=== PATIENT | female | born 1955 | race Caucasian/White ===

== ENCOUNTER → 2016-11-27 | Outpatient (REF) | payer OTHER ==
[~2016-11-27] MED LIST: ACET30TAB PO; ASPI1TAB PO; CALC600T57 PO; ENAL20TA PO; FISH1000 PO; GLUC1CAP10 PO; HYDR25TA6 PO; HYDR25TAB PO; IBUP80TA PO; MULT1TAB10 PO; OCUVCAP2 PO; POTA1TAB23 PO; VITA100067 PO
== END ==
LOC: M SFHCWAGY 08:37
PROVIDERS: ATTEND Nurse Practitioner Family
DX: Z01.419 Encounter for gynecological examination (general) (routine) without abnormal findings (principal); Z11.51 Encounter for screening for human papillomavirus (HPV); R87.610 Atypical squamous cells of undetermined significance on cytologic smear of cervix (ASC-US)

== ENCOUNTER → 2016-11-27 | Outpatient (CLI) | payer OTHER ==
--- NOTE | 2016-11-27 14:39 | REPMRS ---
Patient History The patient states she had a clinical breast exam in 12/13 Patient is postmenopausal. No known family history of cancer. Reductions of both breasts, 2002. Benign excisional biopsy of the right breast, 2001. Digital Woman Screen Mammo: November 27, 2016 - Exam #: [id number] Bilateral CC and MLO view(s) were taken. Technologist: Socorro Duenas, Technologist Prior study comparison: November 28, 2015, digital woman screen mammo performed at [facility]. July 27, 2014, digital woman screen mammo performed at [facility]. FINDINGS: The breast tissue is almost entirely fat. There has been no change in the appearance of the mammogram from the prior studies. There is no interval development of dominant mass, areas of architectural distortion, or clustered microcalcification typical of malignancy. Scattered lymph nodes are seen in the axillae. Few scattered fibronodular densities in the breast parenchyma seen, none more suspicious than any other, some definitely smaller but none larger. No significant changes when compared with prior studies. ASSESSMENT: BI-RADS/ACR category 2 mammogram. Benign finding(s). Recommendation Routine screening mammogram in 1 year. A. Negative x-ray reports should not delay biopsy if a dominant or clinically suspicious mass is present. B. Four to eight percent of cancers are not identified by mammography. C. Adenosis and dense breast may obscure an underlying neoplasm.(for women over age 40). This mammogram was interpreted with the aid of an FDA-approved computer-aided dectection system. Electronically Signed By: Farooq Brothers MD 11/27/16 5639
== END ==
LOC: M WHC 08:00
PROVIDERS: ATTEND Nurse Practitioner Family
DX: Z12.31 Encounter for screening mammogram for malignant neoplasm of breast (principal)

== ENCOUNTER → 2016-11-28 | Outpatient (CLI) | payer OTHER ==
--- NOTE | 2016-11-29 06:35 | REP ---
Clinical: Postmenopausal bleeding . Technique: Transabdominal pelvic ultrasound followed by transvaginal examination for better evaluation of the endometrium and adnexa . Findings: Bladder is unremarkable and measures 9.8 x 7.3 x 5.0 cm . Anteverted uterus measures 8.9 x 4.7 x 5.0 cm with 2.2 cm subserosal anterior fibroid. The endometrial complex is heterogeneous and measures 22.4 mm thickness. Bilateral ovaries are normal in appearance. Right ovary measures 2.0 x 1.3 x 2.3 cm. Left ovary measures 1.9 x 1.0 x 2.0 cm. No pelvic fluid or adnexal mass lesion. Impression: 1. Anteverted uterus with 2.2 cm anterior subserosal fibroid and thickened heterogeneous endometrial complex to 22 mm. Signed by Dk Romeo MD 11/29/2016 06:27 A
== END ==
LOC: M WHC 13:16
PROVIDERS: ATTEND Nurse Practitioner Family
DX: N95.0 Postmenopausal bleeding (principal)

== ENCOUNTER 2017-01-09 07:08 | Day surgery (SDC) | payer OTHER ==
[~2017-01-09] VITALS: Ht 149.9 cm; Wt 83.9 kg
[~2017-01-09 07:08] MED LIST changes: -ACET30TAB PO; -IBUP80TA PO
[2017-01-09] MEDS ORDERED: MIDAZOLAM INJ 2 MG/2 ML VIAL (J2250) As Ordered ONE (07:11)
[2017-01-09] MEDS ORDERED: fentaNYL 100 MCG/2 ML INJECTION (J3010) As Ordered ONE ×2 (07:11→08:59)
[2017-01-09] MEDS ORDERED: LR 1,000 ML IV ONE (07:30)
[2017-01-09 07:43] LABS: MEAN CORPUSCULAR HEMOGLOBIN 31.9 pg (27.0-33.0); MEAN CORPUSCULAR HGB CONC 34.4 g/dl (32.0-36.5); MEAN CORPUSCULAR VOLUME 92.9 fl (80.0-96.0); RED CELL DISTRIBUTION WIDTH 12.7 % (11.5-14.5); WHITE BLOOD COUNT 7.2 K/mm3 (4.0-10.0)
[2017-01-09] MEDS ORDERED: ONDANSETRON 4MG/2ML VIAL (J2405) As Ordered ONE ×2 (08:58→09:59)
[2017-01-09] MEDS ORDERED: dexameTHASONE 4 MG/ML 1ML VIAL (J1100) As Ordered ONE (08:58)
[2017-01-09] MEDS ORDERED: PROPOFOL 200 MG/20 ML VIAL As Ordered ONE (08:59)
[2017-01-09] MEDS ORDERED: LIDOCAINE 2% INJ 100 MG/5 ML SDV (FOR ANES.) As Ordered ONE (08:59)
[2017-01-09] MEDS ORDERED: KETOROLAC 60 MG/2 ML VIAL (J1885) As Ordered ONE ×2 (09:00→09:05)
[2017-01-09] MEDS ORDERED: SILVER NITRATE APPLICATOR As Ordered ONE (09:29)
[2017-01-09] MEDS ORDERED: IBUP80TA PO (10:11)
[2017-01-09] MEDS ORDERED: ACET30TAB PO (10:12)
[2017-01-09] MEDS ORDERED: fentaNYL 100 MCG/2 ML INJECTION (J3010) IV PRN (10:30)
[2017-01-09] MEDS ORDERED: LR 1,000 ML IV SCH ×2 (10:30)
[2017-01-09] MEDS ORDERED: HYDROmorphone HCL 1 MG/ML SYRINGE (J1170) IV PRN (10:30)
[2017-01-09] MEDS ORDERED: ONDANSETRON 4MG/2ML VIAL (J2405) IV PRN (10:30)
[2017-01-09] MEDS ORDERED: PERCOCET 5MG/325MG TAB PO PRN (10:30)
--- NOTE | 2017-01-09 11:55 | ECGEPIP ---
Stationary ECG Study [facility] Test Date: 2017-01-09 Pat Name: AMANUEL ZHU GASTON Department: Room: - Gender: F [employer]: RAJESH : 1955 Requested By: CLEM Singh Order Number: [id number] Reading MD: Adrian Bruce Measurements Intervals [place] Rate: 62 P: 43 ID: [id number] QRS: -3 QRSD: 76 T: 13 QT: 375 QTc: 383 Interpretive Statements SINUS RHYTHM WITH FIRST DEGREE AV BLOCK Comparison tracing not on file Electronically Signed On 01-09-2017 11:55:02 EDT by Adrian Bruce
[2017-01-09] MEDS ORDERED: METOCLOPRAMIDE INJ 10MG/2ML VIAL (J2765) IV ONE (12:15)
[2017-01-09 12:45] VITALS: BP 167/89
--- NOTE | 2017-01-09 13:33 | RO ---
DATE OF PROCEDURE: 01/09/2017 PREOPERATIVE DIAGNOSES: 1. Postmenopausal bleeding. 2. Endocervical polyp / cervical mass POSTOPERATIVE DIAGNOSES 1. Postmenopausal bleeding. 2. Endocervical polyp and cervical mass (polyp vs leiomyoma vs large nabothian cyst) 3. Submucosal endometrial mass approximately 3 cm, favor leiomyoma. PROCEDURE PERFORMED: 1. Cervical mass excision. 2. Endocervical polypectomy. 3. MyoSure hysteroscopic myomectomy. 4. Dilatation curettage/hysteroscopy. SURGEON: Shyam Tse DO ONCOLOGY NURSE: None. ANESTHESIA: General via laryngeal mask airway (LMA). SPECIMENS SENT TO PATHOLOGY: 1. Ectocervical mass. The mass was tagged with suture. 2. Endocervical polyp. 3. Morcellated submucosal mass, favor leiomyoma. 4. Endometrial curettings. ESTIMATED BLOOD LOSS: 75 mL. FLUIDS REPLACED: 1 liter Lactated Ringer's. Hysteroscopic fluid deficit was 650 mL of normal saline. DRAINS: In and out catheter, 50 mL of urine output. COMPLICATIONS: None. PREOPERATIVE ANTIBIOTICS/PROPHYLAXIS: Ancef 2 grams IV times one. INTRAOPERATIVE FINDINGS: 1. Ectocervical mass with a broad base, approximately 2 cm, located at 5 o' clock on the ectocervix. 2. Endocervical polyp. 3. Submucosal mass, favor leiomyoma, approximately 3 cm in greatest dimension. 4. Background endometrial tissue was atrophic appearing. After removal of the submucosal mass, a normal intrauterine cavity was visualized. Senior Caregiver images taken and placed in the chart. INDICATION: Patient is a 61-year-old with a history of postmenopausal bleeding. On physical exam in the office, she was noted to have at least one endocervical polyp, possibly two. The ectocervical mass was noted to be quite large with a broad base. The preoperative ultrasonography revealed a thickened endometrium with a possible endometrial mass. PROCEDURE: The patient was counseled and consented on the risks, benefits, indications and alternatives of the procedure, and informed consent was obtained. She was taken to the operating room with an IV running and placed on the operating table in the dorsal supine position. General anesthesia was administered and the airway was secured without any difficulty. She was placed in the high lithotomy position. She was prepared and draped in normal sterile fashion. A time out was performed per protocol. The bladder was drained with a sterile in and out catheter. A sterile speculum was placed into the vagina with good visualization of the cervix. A single-tooth tenaculum was used to grasp the anterior lip of the cervix and downward traction was applied. The ectocervical mass was then excised with the 11 blade. This mass was sent to pathology for permanent section. The subsequent ectocervical defect was bleeding and this defect was repaired with a single figure-of-8 stitch using #0 Vicryl. Excellent hemostasis was noted. An endocervical mass was also noted at the os. Polyp forceps were used to grasp this mass just within the os. This mass was then twisted upon its stalk until it was removed. This mass was sent separately for permanent section. The cervix was sequentially dilated with Keo dilators up to a #13. The uterus was sounded to 8 cm. The hysteroscope was placed transcervically into the intrauterine cavity. A submucosal mass was identified. The MyoSure Lite device was then placed through the hysteroscope and the MyoSure device was abutting the mass and then activated. This mass was methodically morcellated until the mass was completely removed. Minimal bleeding was noted during this time of morcellation. Morcellation proceeded without any difficulty. Once the mass was removed in its entirety, the base of the mass was inspected. The base of the mass was posterior and midbody of the uterus and after excision, the base was noted be hemostatic. The background endometrial lining throughout the cavity was noted to be atrophic. The bilateral fallopian tube ostia were easily visualized. No additional intrauterine or intracervical mass was noted. The hysteroscope was removed. A light curettage was performed throughout the entire intrauterine cavity with minimal tissue return. Minimal bleeding from the cervical os was noted. The single-tooth tenaculums were removed. Tenaculum sites were cauterized with silver nitrate. Minimal bleeding from the os was noted. Sponge, lap, needle and sponge counts were correct. All instruments were removed from the vagina. The patient tolerated the entire procedure well. She was transferred to the postanesthesia care unit (PACU) in good and stable condition. GARY
== END 2017-01-09 12:56 | disposition home or self-care (01) ==
LOC: M SDC 07:08
PROVIDERS: ATTEND Obstetrics & Gynecology
DX: N88.8 Other specified noninflammatory disorders of cervix uteri (principal); N84.0 Polyp of corpus uteri; N84.1 Polyp of cervix uteri; R93.8 Abnormal findings on diagnostic imaging of other specified body structures; I10 Essential (primary) hypertension; R01.1 Cardiac murmur, unspecified; D69.6 Thrombocytopenia, unspecified; I73.00 Raynaud's syndrome without gangrene; M19.041 Primary osteoarthritis, right hand; M19.042 Primary osteoarthritis, left hand; Z79.899 Other long term (current) drug therapy; Z79.82 Long term (current) use of aspirin; Z90.81 Acquired absence of spleen
CPT/HCPCS: 36415; 58558; 85027; 86850; 86900; 86901; 88305; 93005; J0690; J1100; J1885; J2250; J2405; J2765; J3010

== ENCOUNTER → 2017-08-08 | Outpatient (CLI) | payer OTHER | LOC: M RAD 11:39 | DX: N95.0 Postmenopausal bleeding (principal); D25.1 Intramural leiomyoma of uterus | CPT/HCPCS: 76856 ==

== ENCOUNTER → 2017-08-30 | Outpatient (REF) | payer OTHER | LOC: M LAB REF 18:41 | DX: N95.0 Postmenopausal bleeding (principal) ==

== ENCOUNTER → 2017-12-02 | Outpatient (REF) | payer OTHER ==
[2017-12-04 15:25] LABS: HPV HYBRID CAPTURE II Positive (Negative)
== END ==
LOC: M SFHCWAGY 09:55
DX: Z12.4 Encounter for screening for malignant neoplasm of cervix (principal)
CPT/HCPCS: G0123

== ENCOUNTER → 2017-12-02 | Outpatient (CLI) | payer OTHER | LOC: M WHC 09:29 | DX: Z12.31 Encounter for screening mammogram for malignant neoplasm of breast (principal) | CPT/HCPCS: 77067 ==

== ENCOUNTER → 2018-07-25 | Outpatient (REF) | payer OTHER ==
[~2018-07-25] MED LIST changes: +ACET30TAB PO; +IBUP80TA PO
[2018-07-30 14:25] LABS: HPV HYBRID CAPTURE II Positive (Negative)
== END ==
LOC: M LAB REF 12:39
PROVIDERS: ATTEND Obstetrics & Gynecology
DX: Z12.4 Encounter for screening for malignant neoplasm of cervix (principal)
CPT/HCPCS: 87624; G0123

== ENCOUNTER → 2018-12-03 | Outpatient (CLI) | payer OTHER ==
[~2018-12-03] MED LIST changes: +ACET-716 PO; -ACET30TAB PO; -ASPI1TAB PO; +ASPI81TA26 PO
--- NOTE | 2018-12-03 10:16 | REPMRS ---
Patient History The patient states she has not had a clinical breast exam in over a year. Patient is postmenopausal. No known family history of cancer. Reductions of both breasts, 2001. Benign excisional biopsy of the right breast, 2001. No Hormone Replacement Therapy 3D TOMOSYNTHESIS WAS PERFORMED. The [facility] lifetime risk for breast cancer is 9.3 %. Digital Woman Screen Mammo: December 03, 2018 - Exam #: [id number] Bilateral CC and MLO view(s) were taken. Technologist: Lilliam Hernandez, Technologist Prior study comparison: December 02, 2017, bilateral digital woman screen mammo performed at [facility]. November 27, 2016, digital woman screen mammo performed at [facility]. FINDINGS: There are scattered fibroglandular densities. There has been no change in the appearance of the mammogram from the prior studies. There is a mild amount of residual fibroglandular tissue which is fairly symmetric. There is no interval development of dominant mass, architectural distortion, or clustered microcalcification suggestive of malignancy. Assessment: BI-RADS/ACR category 1 mammogram. Negative Mammogram. Recommendation Routine screening mammogram in 1 year (for women over age 40). This mammogram was interpreted with the aid of an FDA-approved computer-aided dectection system. Electronically Signed By: Castro Banda MD 12/03/18 1016
== END ==
LOC: M WHC 08:26
PROVIDERS: ATTEND Obstetrics & Gynecology
DX: Z12.31 Encounter for screening mammogram for malignant neoplasm of breast (principal); Z78.0 Asymptomatic menopausal state

== ENCOUNTER → 2018-12-03 | Outpatient (REF) | payer OTHER | LOC: M LAB REF 13:36 | PROVIDERS: ATTEND Obstetrics & Gynecology | DX: R87.810 Cervical high risk human papillomavirus (HPV) DNA test positive (principal) ==

== ENCOUNTER → 2020-01-14 | Outpatient (REF) | payer OTHER ==
[~2020-01-14] MED LIST changes: -ENAL20TA PO; +ENAL20TA11 PO
== END ==
LOC: M SFHCWAGY 16:53
PROVIDERS: ATTEND Obstetrics & Gynecology
DX: Z12.4 Encounter for screening for malignant neoplasm of cervix (principal); R87.610 Atypical squamous cells of undetermined significance on cytologic smear of cervix (ASC-US)
CPT/HCPCS: 87624; G0123

== ENCOUNTER → 2020-01-18 | Outpatient (CLI) | payer OTHER ==
--- NOTE | 2020-01-18 16:01 | REPMRS ---
Patient History The patient states she had a clinical breast exam in 2019. No known family history of cancer. Reductions of both breasts, 2001. Benign excisional biopsy of the right breast, 2001. No Hormone Replacement Therapy 3D TOMOSYNTHESIS WAS PERFORMED. [facility] lifetime risk for breast cancer is 9.0%. VOLPARA DENSITY A. Digital Woman Screen Mammo: January 18, 2020 - Exam #: [id number] Bilateral CC and MLO view(s) were taken. Technologist: Rere Alvarado, Technologist Prior study comparison: December 03, 2018, bilateral digital woman screen mammo performed at [facility]. December 02, 2017, bilateral digital woman screen mammo performed at [facility]. FINDINGS: There are scattered fibroglandular densities. There has been no change in the appearance of the mammogram from the prior studies. There is a mild amount of residual fibroglandular tissue which is fairly symmetric. There is no interval development of dominant mass, architectural distortion, or clustered microcalcification suggestive of malignancy. Assessment: BI-RADS/ACR category 1 mammogram. Negative Mammogram. Recommendation Routine screening mammogram in 1 year (for women over age 40). This mammogram was interpreted with the aid of an FDA-approved computer-aided dectection system. Electronically Signed By: Castro Banda MD 01/18/20 [id number]
== END ==
LOC: M WHC 15:18
PROVIDERS: ATTEND Obstetrics & Gynecology
DX: Z12.31 Encounter for screening mammogram for malignant neoplasm of breast (principal); Z86.018 Personal history of other benign neoplasm

== ENCOUNTER → 2020-02-24 | Outpatient (REF) | payer OTHER | LOC: M SFHCWAGY 18:37 | PROVIDERS: ATTEND Obstetrics & Gynecology | DX: R87.610 Atypical squamous cells of undetermined significance on cytologic smear of cervix (ASC-US) (principal) ==

== ENCOUNTER → 2021-03-08 | Outpatient (REF) | payer OTHER ==
[~2021-03-08] MED LIST changes: +HYDR-3490 PO; -HYDR25TAB PO
== END ==
LOC: M SFHCWAGY 16:59
PROVIDERS: ATTEND Obstetrics & Gynecology
DX: Z12.4 Encounter for screening for malignant neoplasm of cervix (principal)
CPT/HCPCS: 87624; G0123

== ENCOUNTER → 2021-04-27 | Outpatient (CLI) | payer OTHER ==
--- NOTE | 2021-04-27 09:00 | REP ---
INDICATION: SCREEN MAMMO. COMPARISON: 01/18/2020 as well as multiple other prior exams. TECHNIQUE: MLO and CC views bilateral breasts with tomosynthesis FINDINGS: Mild scattered fibroglandular tissue is present. There are 2 nodules in the medial aspect of the left breast. Anteriorly an oval nodule demonstrates smooth margins, and measures about 5 mm in diameter. More posteriorly a lobulated well-defined oval nodule has a maximum diameter 7 mm. Otherwise no mass or clustered microcalcifications are seen. The Volpara volumetric breast density pattern is A. IMPRESSION: BIRADS/ACR category 0, incomplete. Two nodules visualized in the medial aspect of the left breast. Recommend spot compression views and ultrasound to further evaluate. This patient's Tyrer-Cuzick lifetime breast cancer risk assessment score is 8.6%. This mammogram was interpreted with the aid of an FDA-approved computer-aided detection system. The patient states she had a clinical breast exam in over 1 year ago. The patient letter being requested is M0. RECOMMENDATION: Recommend spot compression views and ultrasound left breast as discussed above. <Electronically signed by Castro Banda > 04/27/21 5529
== END ==
LOC: M WHC 06:57
PROVIDERS: ATTEND Obstetrics & Gynecology
DX: Z12.31 Encounter for screening mammogram for malignant neoplasm of breast (principal)

== ENCOUNTER → 2021-05-16 | Outpatient (CLI) | payer OTHER | LOC: M WHC 14:39 | PROVIDERS: ATTEND Obstetrics & Gynecology | DX: Z12.31 Encounter for screening mammogram for malignant neoplasm of breast (principal) | CPT/HCPCS: 76642; 77065; G0279 ==

== ENCOUNTER → 2022-04-05 | Outpatient (REF) | payer OTHER | LOC: M SFHCWAGY 13:32 | PROVIDERS: ATTEND Obstetrics & Gynecology | DX: Z12.4 Encounter for screening for malignant neoplasm of cervix (principal); R87.610 Atypical squamous cells of undetermined significance on cytologic smear of cervix (ASC-US) | CPT/HCPCS: 87624; G0123 ==

== ENCOUNTER → 2022-05-14 | Outpatient (CLI) | payer OTHER | LOC: M WHC 08:16 | PROVIDERS: ATTEND Obstetrics & Gynecology | DX: Z12.31 Encounter for screening mammogram for malignant neoplasm of breast (principal) ==

== ENCOUNTER → 2023-07-15 | Outpatient (CLI) | payer MEDICARE, OTHER ==
[~2023-07-15] MED LIST changes: +ENAL1TAB52 PO; -ENAL20TA11 PO
== END ==
LOC: M WHC 09:18
PROVIDERS: ATTEND Obstetrics & Gynecology
DX: Z12.31 Encounter for screening mammogram for malignant neoplasm of breast (principal)

== ENCOUNTER → 2023-07-15 | Outpatient (REF) | payer OTHER | LOC: M SFHCWAGY 12:44 | PROVIDERS: ATTEND Obstetrics & Gynecology | DX: Z12.4 Encounter for screening for malignant neoplasm of cervix (principal) ==

== ENCOUNTER → 2023-08-09 | Outpatient (CLI) | payer OTHER | LOC: M RAD 15:42 | PROVIDERS: ATTEND Obstetrics & Gynecology | DX: N95.0 Postmenopausal bleeding (principal); N85.8 Other specified noninflammatory disorders of uterus ==

== ENCOUNTER → 2024-09-03 | Outpatient (CLI) | payer OTHER | LOC: M PLAIMG 06:45 | PROVIDERS: ATTEND Orthopaedic Surgery Hand Surgery | DX: M25.561 Pain in right knee (principal); S83.241A Other tear of medial meniscus, current injury, right knee, initial encounter; X58.XXXA Exposure to other specified factors, initial encounter; Y92.9 Unspecified place or not applicable; Y93.9 Activity, unspecified; Y99.9 Unspecified external cause status ==

== ENCOUNTER → 2024-11-27 | Outpatient (CLI) | payer OTHER | LOC: M WHC 09:27 | PROVIDERS: ATTEND Obstetrics & Gynecology | DX: Z12.31 Encounter for screening mammogram for malignant neoplasm of breast (principal); R92.313 Mammographic fatty tissue density, bilateral breasts ==